=== PATIENT | male | born 1965 | race Caucasian/White ===

== ENCOUNTER 2022-09-20 09:07 | Emergency (ER) | payer OTHER ==
[~2022-09-20] VITALS: Ht 172.7 cm; Wt 72.7 kg
[~2022-09-20 09:07] MED LIST: NAPROSYN500 MG PO; TYLENOL650 MG RE
[2022-09-20 09:15] VITALS: BP 176/107
[2022-09-20 09:31] VITALS: BP 173/106
[2022-09-20] MEDS ORDERED: ZPAK PO (09:32)
[2022-09-20] MEDS ORDERED: MECLIZINE 2525 MG PO (09:32)
[2022-09-20 09:46] VITALS: BP 157/99
[2022-09-20 10:03] VITALS: BP 157/99
== END 2022-09-20 09:52 | disposition home or self-care (01) | DRG 149 ==
LOC: ED 09:07
DX: R42 Dizziness and giddiness (principal); J06.9 Acute upper respiratory infection, unspecified